=== PATIENT | female | born 1950 | race Caucasian/White ===

== ENCOUNTER 2018-04-17 08:30 | Emergency (ER) | payer MEDICARE, BC ==
[~2018-04-17] VITALS: Ht 172.7 cm; Wt 65.9 kg
[~2018-04-17 08:30] MED LIST: AMIT-189 PO; ATOR20TA PO; ESTR0.6261 PO; FLUO20CA39 PO; GLIM1TAB46 PO; LISI-600 PO; METF500T PO
[2018-04-17 08:43] VITALS: BP 134/91
[2018-04-17] MEDS ORDERED: triamcinolone acetonide 0.1% ointment 15gm TP ONE (08:50)
[2018-04-17] MEDS ORDERED: hyDROXYzine 50 mg/ml injection ***IM only IM ONE (08:50)
[2018-04-17] MEDS ORDERED: TRIA15OI2 TOP (09:17)
[2018-04-17] MEDS ORDERED: HYDR25CA PO (09:17)
== END 2018-04-17 09:50 | disposition home or self-care (01) ==
LOC: ER 08:31
DX: L98.8 Other specified disorders of the skin and subcutaneous tissue (principal); L29.9 Pruritus, unspecified; I10 Essential (primary) hypertension; E11.9 Type 2 diabetes mellitus without complications; Z86.14 Personal history of Methicillin resistant Staphylococcus aureus infection; Z85.3 Personal history of malignant neoplasm of breast; Z90.49 Acquired absence of other specified parts of digestive tract; Z90.710 Acquired absence of both cervix and uterus; Z98.890 Other specified postprocedural states; Z79.899 Other long term (current) drug therapy
CPT/HCPCS: 96372; 99283; J3410